=== PATIENT | male | born 1985 | race Two or more races ===

== ENCOUNTER 2024-07-30 13:12 | Emergency (ER) | payer MEDICAID, OTHER ==
[~2024-07-30] VITALS: Ht 185.4 cm; Wt 134.0 kg
[2024-07-30 13:37] VITALS: BP 138/101; PULSE 101; PULSE 96; RESP 18; TEMP 97.6; O2SAT 96
--- NOTE | 2024-07-30 13:43 | ED.PDOC ---
SOB-HPI HPI Comments 38 year old male presents to the ED with chief complaint of abnormal imaging results. Patient reports that he was advised by his PCP from Dr. Clements to be seen by the ED today due to a recent CT scan indicating a possible abscess outside of the lungs and would need antibiotic treatment. Patient relays that he had previous pneumonia and thoracotomy about 5 months ago, being admitted to [place] for treatment. Patient states he was just diagnosed with breast cancer yesterday, but is not sure if the lung infection is related. Patient denies any SOB, chest pain, dizziness, N/V/D, fever, or chills. Chief Complaint: Shortness of Breath Time Seen by MD: 13:38 Reviewed notes: Nurses Notes, Medications, Allergies Information Source: Patient Mode of Arrival: Ambulatory Severity: Moderate Timing: Days Duration: Since onset Context: At Rest PE Risk Factors: None History of: None Prehospital treatment: None Modifying Factors: Nothing Past Medical History PAST MEDICAL HISTORY: Cancer Surgical History (Other): Thoracotomy Family History Family History: Reviewed,noncontributory to illness Social History Smoker: Non-Smoker Alcohol: Denies ETOH Use Drugs: Denies Drug Use Lives In: Home Constitutional: denies: chills, diaphoresis, fatigue, fever, malaise, sweats, weakness, others EENTM: denies: blurred vision, double vision, ear bleeding, ear discharge, ear drainage, ear pain, ear ringing, eye pain, eye redness, hearing loss, mouth pain, mouth swelling, nasal discharge, nose bleeding, nose congestion, nose pain, photophobia, tearing, throat pain, throat swelling, voice changes, others Respiratory: denies: cough, hemoptysis, orthopnea, SOB at rest, shortness of breath, SOB with excertion, stridor, wheezing, others Cardiovascular: denies: chest pain, dizzy spells, diaphoresis, Dyspnea on exertion, edema, irregular heart beat, left arm pain, lightheadedness, palpitations, PND, syncope, others Gastrointestinal: denies: abdomen distended, abdominal pain, blood streaked bowels, constipated, diarrhea, dysphagia, difficulty swallowing, hematemesis, melena, nausea, poor appetite, poor fluid intake, rectal bleeding, rectal pain, vomiting, others Genitourinary: denies: burning, dysuria, flank pain, frequency, hematuria, incontinence, penile discharge, penile sore, pain, testicle pain, testicle swelling, urgency, others Neurological: denies: dizziness, fainting, headache, left sided numbness, left sided weakness, numbness, paresthesia, pre-existing deficit, right sided numbness, right sided weakness, seizure, speech problems, tingling, tremors, weakness, others Musculoskeletal: denies: back pain, gout, joint pain, joint swelling, muscle pain, muscle stiffness, neck pain, others Integumetry: denies: bruises, change in color, change in hair/nails, dryness, laceration, lesions, lumps, rash, wounds, others Allergic/Immunocompromised: denies: Difficulty Healing, Frequent Infections, Hives, Itching, others Hematologic/Lymphatic: denies: anemia, blood clots, easy bleeding, easy bruising, swollen glands, others Endocrine: denies: excessive hunger, excessive sweating, excessive thirst, excessive urination, flushing, intolerance to cold, intolerance to heat, unexplained weight gain, unexplained weight loss, others Psychiatric: denies: anxiety, bipolar disorder, depression, hopeless, panic disorder, schizophrenia, sleepless, suicidal, others All Other Systems: Reviewed and Negative Physical Exam General Appearance: No Apparent Distress, Normal HEENT: Normal ENT Inspection, PERRL/EOMI Neck: Full Range of Motion, Non-Tender, Normal, Normal Inspection Respiratory: Chest Non-Tender, Lungs Clear, No Accessory Muscle Use, No Respiratory Distress, Normal Breath Sounds Cardiovascular: No Edema, No JVD, No Murmur, No Gallop, Normal Peripheral Pulses, Regular Rate/Rhythm Breast Exam: Deferred Gastrointestinal: No Organomegaly, Non Tender, No Pulsatile Mass, Normal Bowel Sounds, Soft Genitalia: Deferred Pelvic: Deferred Rectal: Deferred Extremities: No calf tenderness, Normal capillary refill, Normal inspection, Normal range of motion, Non-tender, No pedal edema Musculoskeletal : Apperance: Normal Neurologic: Alert, forge operator helper II-XII nml as Tested, No Motor Deficits, Normal Affect, Normal Mood, No Sensory Deficits Cerebellar Function: Normal Reflexes: Normal Skin: Dry, Normal Color, Warm Lymphatic: No Adenopathy Was a procedure done? Was a procedure done?: No Differential Dx Differential Diagnosis: Pneumonia, URI Comments Worsening malignancy X-Ray, Labs, Meds, VS Vital Signs Date Time Temp Pulse Resp B/P (MAP) Pulse Ox O2 Delivery O2 Flow Rate FiO2 07/30/24 13:37 97.6 101 18 138/101 (113) 96 07/30/24 13:37 101 18 96 Room Air* 0 21 07/30/24 13:37 97.6 96 18 138/101 (113) 96 97.6 07/30/24 13:37 18 96 Room Air* 0 21 Lab Test 07/30/24 13:51 Range/Units White Blood Count 7.7 4.4-10.8 10^3/uL Red Blood Count 5.43 4.5-5.90 10^6/uL Hemoglobin 14.9 13.5-17.5 g/dL Hematocrit 43.5 41.0-53.0 % Mean Corpuscular Volume 80.2 80.0-100.0 fL Mean Corpuscular Hemoglobin 27.5 L 28.0-32.0 pg Mean Corpuscular Hemoglobin Concent 34.2 32.0-36.0 g/dL Red Cell Distribution Width 15.9 H 11.8-14.3 % Platelet Count 251 140-450 10^3/uL Mean Platelet Volume 6.8 L 6.9-10.8 fL Neutrophils (%) (Auto) 64.8 37.0-80.0 % Lymphocytes (%) (Auto) 27.6 10.0-50.0 % Monocytes (%) (Auto) 7.3 0.0-12.0 % Eosinophils (%) (Auto) 0.0 0.0-7.0 % Basophils (%) (Auto) 0.3 0.0-2.0 % Neutrophils # (Auto) 5.0 1.6-8.6 10 ^3/uL Lymphocytes # (Auto) 2.1 0.4-5.4 10 ^3/uL Monocytes # (Auto) 0.6 0-1.3 10 ^3/uL Eosinophils # (Auto) 0 0-0.8 10 ^3/uL Basophils # (Auto) 0 0-0.2 10 ^3/uL Nucleated Red Blood Cells 0.1 % Sodium Level 137 136-145 mmol/L Potassium Level 3.8 3.5-5.1 mmol/L Chloride Level 104 98-107 mmol/L Carbon Dioxide Level 28 20-31 mmol/L Anion Gap 5 5-15 Blood Urea Nitrogen 10 9-23 mg/dL Creatinine 0.96 0.700-1.30 mg/dL Glomerular Filtration Rate Calc 102 >90 mL/min BUN/Creatinine Ratio 10.4 10.0-20.0 Serum Glucose 132 H 74-106 mg/dL Calcium Level 9.6 8.7-10.4 mg/dL Chest XR: FINDINGS: Lines and Tubes: None Lungs: Clear Pleura: Small right pleural effusion. No pneumothorax. Cardiomediastinal contours: Unremarkable Bones: Unremarkable IMPRESSION: No evidence of acute disease. Images Reviewed?: Images reviewed and evaluated by me Time of 1ST Reevaluation: 14:38 Reevaluation 1ST: Unchanged Patient Education/Counseling: Diagnosis, Treatment Family Education/Counseling: No Family Present Additional Information I reviewed the following notes from patient's past medical encounters: None The following tests were ordered, and results were reviewed by me: CBC, BMP, Chest XR I reviewed and agreed with the following test results read by other providers: Chest XR Additional Information was gathered from interviewing the following independent historians: None I discussed treatment and results with medical personnel. Departure 1 Departure Time of Disposition: 16:09 (Patient with new outpatient breast cancer diagnosis as well as possible empyema on outpatient CT scan. Chest x-ray and labs here were benign today however given patient's recent CT findings we will admit patient for further workup and expert consultation.) Impression: Primary Impression: Breast cancer Qualified Codes: C50.921 - Malignant neoplasm of unspecified site of right male breast Additional Impression: Mass of right chest wall Disposition: ADMITTED INPATIENT Admit to: Med Surg Condition: Serious Critical Care Note Critical Care Time?: No Stability Stability form required: No Heart Score Heart Score: Heart Score Response (Comments) Value History N/A 0 EKG N/A 0 Age N/A 0 Risk Factors N/A 0 Troponin N/A 0 Total 0 I personally scribed for BARBIE BRADLEY MD ([email or web address]) on 07/30/24 at 13:43. Electronically submitted by Winston Gray ([email or web address]). I personally scribed for BARBIE BRADLEY MD ([email or web address]) on 07/30/24 at 14:14. Electronically submitted by Winston Gray ([email or web address]). BARBIE BRADLEY MD Jul 30, 2024 13:43
--- NOTE | 2024-07-30 13:57 | DVH ---
CHEST RADIOGRAPH Indication: cf empyema Technique: Frontal and lateral view of the chest was obtained Comparison: None FINDINGS: Lines and Tubes: None Lungs: Clear Pleura: Small right pleural effusion. No pneumothorax. Cardiomediastinal contours: Unremarkable Bones: Unremarkable IMPRESSION: No evidence of acute disease.
[2024-07-30 14:17] LABS: Basophils # (auto) 0 10 ^3/uL (0-0.2); Basophils % (auto) 0.3 % (0.0-2.0); Eosinophils # (auto) 0 10 ^3/uL (0-0.8); Hematocrit 43.5 % (41.0-53.0); Hemoglobin 14.9 g/dL (13.5-17.5); Lymphocytes # (auto) 2.1 10 ^3/uL (0.4-5.4); Lymphocytes % (auto) 27.6 % (10.0-50.0); Mean Corpuscular Hemoglobin 27.5 pg (28.0-32.0); Mean Corpuscular Hgb Conc. 34.2 g/dL (32.0-36.0); Mean Corpuscular Volume 80.2 fL (80.0-100.0); Monocytes # (auto) 0.6 10 ^3/uL (0-1.3); Monocytes % (auto) 7.3 % (0.0-12.0); Neutrophils % (auto) 64.8 % (37.0-80.0); Nucleated Red Blood Cells % 0.1 %; Platelet Count (auto) 251 10^3/uL (140-450); Red Blood Cells 5.43 10^6/uL (4.5-5.90); Red Cell Distribution Width 15.9 % (11.8-14.3); White Blood Cell 7.7 10^3/uL (4.4-10.8)
[2024-07-30 14:44] LABS: Chloride 104 mmol/L (98-107); Potassium 3.8 mmol/L (3.5-5.1); Sodium 137 mmol/L (136-145)
[2024-07-30 14:45] LABS: Anion Gap 5 (5-15); Calcium 9.6 mg/dL (8.7-10.4); Carbon Dioxide 28 mmol/L (20-31)
[2024-07-30 14:50] LABS: BUN/Creatinine Ratio 10.4 (10.0-20.0); Blood Urea Nitrogen 10 mg/dL (9-23)
[2024-07-30 14:56] LABS: Glucose 132 mg/dL (74-106)
== END 2024-07-30 16:16 | disposition left against medical advice (07) ==
LOC: ER 13:12
DX: C50.929 Malignant neoplasm of unspecified site of unspecified male breast (principal); R22.2 Localized swelling, mass and lump, trunk; Z98.890 Other specified postprocedural states
CPT/HCPCS: 36415; 71046; 80048; 85025

== ENCOUNTER → 2024-10-30 | Outpatient (CLI) | payer MEDICAID ==
[~2024-10-30] VITALS: Ht 193 cm; Wt 124.7 kg
[~2024-10-30] MED LIST: ADENOSINE 105 MG in GIVE UN-DILUTED 0 ML IV ONE; ADENOSINE 90 MG/30 ML INJ IV ONE
== END | disposition home or self-care (01) ==
LOC: Rad HDHVI 14:18
PROVIDERS: ATTEND Internal Medicine Cardiovascular Disease
DX: Z01.810 Encounter for preprocedural cardiovascular examination (principal); Z13.6 Encounter for screening for cardiovascular disorders; I49.1 Atrial premature depolarization; I11.9 Hypertensive heart disease without heart failure; E78.00 Pure hypercholesterolemia, unspecified; R42 Dizziness and giddiness; R06.02 Shortness of breath; R07.89 Other chest pain
CPT/HCPCS: 78452; 93017; A9500; J0153

== ENCOUNTER 2024-11-27 20:23 | Emergency (ER) | payer MEDICAID ==
[~2024-11-27] VITALS: Ht 185.4 cm; Wt 125.0 kg
--- NOTE | 2024-11-27 20:33 | ECG ---
[facility] Test Date: 2024-11-27 Test Time: 20:28:12 Pat Name: CUONG DONALDSON Department: ED Room: Gender: M Insurance Broker: MARIE : 1985 Requested By: SEVEN FIELD Order Number: [id number] Reading MD: Irineo Lemus Measurements Intervals [place] Rate: 115 P: 30 [place]: 153 QRS: -17 QRSD: 91 T: 4 QT: 326 QTc: 451 Interpretive Statements Sinus tachycardia Borderline left axis deviation Abnormal R-wave progression, late transition Baseline wander in lead(s) V3,V5 Electronically Signed On 11-27-2024 21:18:41 PDT by Irineo Lemus Please click the below link to view image of tracing.
[2024-11-27 20:34] VITALS: BP 137/81; RESP 14; TEMP 98; O2SAT 94
[2024-11-27 23:58] VITALS: PULSE 115
--- NOTE | 2024-11-27 23:58 | ED.PDOC ---
History of Present Illness HPI Comments 38-year-old male who is brought in by ambulance for complaint of altered level of consciousness. Per EMS report, patient's friend called on patient's behalf after he began coming in and out of consciousness and responding appropriately to questions, while on a road trip together. He was noted to have been found hypertensive on scene, with initial systolic pressure of 210. Patient endorses on having off and on hypertension in the past and it is not on any current medications. Patient also reports on recent breast cancer diagnosis has been started on chemotherapy for over a month, now, after being cleared medically by waiter/waitress tavern. Additionally, patient reports on having a lung infection, last year, that required a thoracentesis and thoracotomy. He denies having any symptoms currently and reports having upcoming appointment at [facility], tomorrow, and inquires on leaving against medical advice. Chief Complaint: High Blood Pressure Time Seen by MD: 20:30 Reviewed Notes: Nurses Notes, Bicycle Technician Notes, Medications, Allergies Allergies: Coded Allergies: NO KNOWN ALLERGIES (Unverified , 07/30/24) Information Source: Patient, Emergency Med Personnel Mode of Arrival: EMS Severity: Moderate Timing: Hours Duration: Since onset Prehospital treatment: None Review of Systems: REVIEW OF SYSTEMS: No fever, no chills, or fatigue HEENT: No sore throat, no earache, no congestion, no neck pain. Cardiac: No chest pain. No palpitations. Lungs: No shortness of breath, no cough. GI: No nausea, no vomiting, no diarrhea, no constipation, no abdominal pain : No dysuria, frequency, or urgency. No hematuria. Musculoskeletal: No joint pain , no joint swelling, no extremity edema. Skin: No rash, no itching. Neuro: ALOC, No headache, no dizziness, no weakness Vital Signs Vital Signs Date Time Temp Pulse Resp B/P (MAP) Pulse Ox O2 Delivery O2 Flow Rate FiO2 11/27/24 23:58 115 11/27/24 20:34 98.0 14 137/81 (99) 94 98.0 Physical Exam General: Awake, alert and oriented. No acute distress. Skin: Skin in warm, dry and intact. Appropriate color for ethnicity. HEENT: Pinpoint pupils. The head is normocephalic and atraumatic. Conjunctivae are clear without exudates or hemorrhage. Sclera is non-icteric. EOM are intact. No signs of nystagmus. Eyelids are normal in appearance without swelling or lesions. Oral mucosa is pink and moist Neck: The neck is supple with normal range of motion. No JVD. Cardiac: Heart rate and rhythm are normal. No murmurs, gallops, or rubs are auscultated. Respiratory: Wheezing. No signs of respiratory distress. Lung sounds are clear in all lobes bilaterally without rales or rhonchi Abdominal: Abdomen is soft, non-tender without distention, guarding or rigidity. Bowel sounds are present and normoactive in all four quadrants. Extremities: Upper and lower extremities are atraumatic in appearance without deformity or edema. Neurological: The patient is awake, alert and oriented to person, place, and time with normal speech. Speech is clear. There is no facial asymmetry. Patient is able to stand without difficulty. Normal pffcew-bp-aroa test. Normal strength. Normal gait Psychiatric: Appropriate mood and affect. Good judgement and insight. Past Medical History PAST MEDICAL HISTORY: Cancer (Breast cancer) Past Medical History (Other): Degenerative disc disease Insomnia Surgical History: Denies all surgeries Surgical History (Other): Thoracentesis, thoracotomy Family History Family History: Reviewed,noncontributory to illness Social History Smoker: Non-Smoker Alcohol: Denies ETOH Use Drugs: Denies Drug Use Lives In: Home Was a procedure done? Was a procedure done?: No EKG EKG : Pulse Rate (adult): 115 [place]: Normal Cardiac Rhythm: ST Block: None Hypertrophy: None ST: Normal Comments No STEMI Differential Dx Considerations may include: Differential diagnoses considered include but are not limited to cardiac structural disease, arrhythmia, acute coronary syndrome, orthostasis, pulmonary embolism, dissection, seizure, basilar stroke, other. X-Ray, Labs, Meds, VS Vital Signs Date Time Temp Pulse Resp B/P (MAP) Pulse Ox O2 Delivery O2 Flow Rate FiO2 11/27/24 23:58 115 11/27/24 20:34 98.0 120 14 137/81 (99) 94 98.0 11/27/24 20:28 115 Time of 1ST Reevaluation: 20:40 Reevaluation 1ST: Improved Patient Education/Counseling: Other (Need for admission) Family Education/Counseling: No Family Present Departure 1 Departure Time of Disposition: 20:40 Impression: Primary Impression: Altered mental status Disposition: 07 LEFT AGAINST MEDICAL ADVICE Condition: Other Comments Patient was seen and evaluated on arrival to the emergency department. Despite our efforts, patient has decided to leave against medical advice. The patient has a normal mental status and full decisional capacity. Patient has been informed of the benefits of staying such as further diagnosis and treatment of possible serious etiology of the symptoms, and the risks of leaving such as , chronic pain, permanent disability or other serious adverse events which might be attributed to leaving. The patient displays clear understanding of these benefits and risks and chooses to leave. The patient is been informed also that they may return here at any time if they change their mind or need to further concerns or questions has been referred to their local medical physician for follow up ARIADNA. Critical Care Note Critical Care Time?: No Stability Stability form required: No Heart Score Heart Score: Heart Score Response (Comments) Value History N/A 0 EKG N/A 0 Age N/A 0 Risk Factors N/A 0 Troponin N/A 0 Total 0 I personally scribed for SEVEN FIELD MD ([email or web address]) on 11/27/24 at 23:58. Electronically submitted by Burton Burris ([email or web address]). SEVEN FIELD MD Nov 27, 2024 23:58
== END 2024-11-27 20:42 | disposition left against medical advice (07) ==
LOC: EDBD 20:23 → ER 20:27
DX: R40.4 Transient alteration of awareness (principal); I10 Essential (primary) hypertension; Z98.890 Other specified postprocedural states
CPT/HCPCS: 93005